=== PATIENT | female | born 1940 | race Caucasian/White ===

== ENCOUNTER 2022-04-28 19:03 | Inpatient (IN) | payer MEDICARE ==
[2022-04-28] VITALS (43 sets, daily range): BP systolic 139; BP diastolic 68; PULSE 74; TEMP 98.2; O2SAT 94–99
[~2022-04-28] VITALS: Ht 167.6 cm; Wt 55.1 kg
[2022-04-28 19:34] LABS: BASO # 0.1 K/mm3 (0.0-0.2); BASO % 0.6 % (0.0-2.0); EOS # 0.1 K/mm3 (0.0-0.7); EOS % 0.7 % (0.0-4.0); GRAN # 9.1 K/mm3 (1.4-6.5); HEMATOCRIT 32.3 % (37.0-47.0); HEMOGLOBIN 10.4 g/dl (12.5-16.0); LYMPH # 0.5 K/mm3 (1.2-3.4); LYMPH % 5.1 % (20.0-51.0); MEAN CELL VOLUME 95 fl (80.0-100.0); MEAN CORPUSCULAR HEMOGLOBIN 31 pg (27-31); MEAN CORPUSCULAR HGB CONC 32 g/dl (33.0-37.0); MONO # 0.8 K/mm3 (0.1-0.6); MONO % 7.4 % (1.7-9.3); PLATELET COUNT 412 K/mm3 (130-400); RED BLOOD COUNT 3.41 M/mm3 (4.10-5.30); REDCELL DISTRIBUTION WIDTH-CV 14.6 % (11.5-14.5)
[2022-04-28 19:55] LABS: ALBUMIN 3.6 gm/dL (3.4-4.8); BILIRUBIN,TOTAL 0.7 mg/dL (0.2-1.2); CALCIUM 9.3 mg/dL (8.4-10.2); CREATININE, serum 0.74 mg/dL (0.57-1.11); POTASSIUM 4.1 mmol/L (3.5-4.5); TOTAL PROTEIN 7.1 gm/dL (6.2-8.1)
[2022-04-28 19:58] LABS: INR 3.3 (0.8-3.0); PROTHROMBIN TIME 38.6 SECONDS (9.7-12.8)
[2022-04-28 20:06] LABS: TROPONIN-I 0.176 ng/mL (0.00-0.033)
[2022-04-28] MEDS ORDERED: COUMADIN 5MG5 MG/TAB PO (20:44)
[2022-04-28] MEDS ORDERED: TIKOSYN0.25 MG PO (20:45)
[2022-04-28] MEDS ORDERED: COZAAR 25MG25 MG/TAB (20:46)
[2022-04-28] MEDS ORDERED: GLUCOPHAGE XR500 M1 PO (20:56)
[2022-04-28] MEDS ORDERED: COZAAR100 MG PO (20:57)
[2022-04-28 22:32] LABS: MAGNESIUM 1.9 mg/dL (1.6-2.6); PHOSPHOROUS 2.7 mg/dL (2.3-4.7)
[2022-04-28 22:52] LABS: THYROID STIMULATING HORMONE 2.697 uIU/mL (0.350-4.940)
[2022-04-29] VITALS (1394 sets, daily range): BP systolic 106–144; BP diastolic 50–77; PULSE 72–87; TEMP 98–100.6; O2SAT 82–100
[2022-04-29] LABS: MUCOUS Present (NOT PRESENT); SQUAMOUS EPITHELIAL None Seen /hpf (0-10); URINE BACTERIA None Seen /hpf (NONE SEEN)
[2022-04-29 00:01] LABS: URINE APPEARANCE Clear (CLEAR/HAZY); URINE BLOOD TRACE-INTACT (NEGATIVE); URINE COLOR Yellow (YELLOW); URINE GLUCOSE Negative (NEGATIVE); URINE KETONE TRACE (NEGATIVE); URINE NITRATE Negative (NEGATIVE); URINE PROTEIN(semi-quant) Negative (NEGATIVE); URINE UROBILINOGEN 0.2 E.U/dL (0.2-1.0)
[2022-04-29 00:02] LABS: COLLECTION METHOD CLEAN CATCH
[2022-04-29 05:19] LABS: BASO % 0.5 % (0.0-2.0); GRAN # 7.1 K/mm3 (1.4-6.5); LYMPH # 0.5 K/mm3 (1.2-3.4); LYMPH % 6.4 % (20.0-51.0); MEAN CELL VOLUME 91 fl (80.0-100.0); MEAN CORPUSCULAR HGB CONC 34 g/dl (33.0-37.0); MONO # 0.7 K/mm3 (0.1-0.6); MONO % 8.7 % (1.7-9.3); PLATELET COUNT 345 K/mm3 (130-400); RED BLOOD COUNT 3.04 M/mm3 (4.10-5.30); REDCELL DISTRIBUTION WIDTH-CV 14.3 % (11.5-14.5)
[2022-04-29 05:22] LABS: HEMATOCRIT 27.7 % (37.0-47.0); HEMOGLOBIN 9.3 g/dl (12.5-16.0); MEAN CORPUSCULAR HEMOGLOBIN 31 pg (27-31)
[2022-04-29 05:42] LABS: CHOLESTEROL RISK RATIO 3.3
[2022-04-29 05:52] LABS: TROPONIN-I 1.92 ng/mL (0.00-0.033)
[2022-04-29 10:49] LABS: INR 2.6 (0.8-3.0); PROTHROMBIN TIME 30.4 SECONDS (9.7-12.8)
--- NOTE | 2022-04-29 11:14 | NUR ---
PRE PROCEDURE ASSESSMENT COMPLETED IN ROOM BY THIS RN. SEE MERGE FOR ALL BASELINE/INTRAPROCEDURAL VITAL, MEDICATION DOSAGES AND ADMINISTRATION TIMES AND INTRA/POST PROCEDURE SEDATION ASSESSMENTS.
[2022-04-29 11:21] LABS: ALBUMIN 3.1 gm/dL (3.4-4.8); BILIRUBIN,TOTAL 0.7 mg/dL (0.2-1.2); CALCIUM 8.6 mg/dL (8.4-10.2); CREATININE, serum 0.68 mg/dL (0.57-1.11); POTASSIUM 3.7 mmol/L (3.5-4.5)
--- NOTE | 2022-04-29 14:56 | NUR ---
PT REMAINS ON NITRO GTT, STATES SHE HAS SOME LEFT SIDED CHEST PAIN, IMPROVED FROM HER ARRIVAL TO THE ED. DENIES ANY FURTHER COMPLAINTS. HEART CATH PLANNED FOR 04/30/22. DR ERWIN ROUNDED TO DISCUSS PROCEDURE FOR TOMORROW. NO FURTHER NEEDS AT THIS TIME.
[2022-04-29 16:01] LABS: MEAN CELL VOLUME 93 fl (80.0-100.0); MEAN CORPUSCULAR HGB CONC 33 g/dl (33.0-37.0); MEAN PLATELET VOLUME 9.3 fl (7.4-10.4); PLATELET COUNT 347 K/mm3 (130-400); RED BLOOD COUNT 2.83 M/mm3 (4.10-5.30); REDCELL DISTRIBUTION WIDTH-CV 14.4 % (11.5-14.5)
[2022-04-29 16:04] LABS: HEMATOCRIT 26.4 % (37.0-47.0); HEMOGLOBIN 8.6 g/dl (12.5-16.0); MEAN CORPUSCULAR HEMOGLOBIN 30 pg (27-31)
[2022-04-29 16:12] LABS: CALCIUM 8.5 mg/dL (8.4-10.2); CREATININE, serum 0.77 mg/dL (0.57-1.11); POTASSIUM 3.6 mmol/L (3.5-4.5)
--- NOTE | 2022-04-29 20:00 | NUR ---
PT IS ALERT AND ORIENTED. PT STATES CHEST PAIN IS MUCH BETTER AND IS A 2/10. PT AMBULATED AROUND ROOM WITH A STAND BY ASSIST. PT INFORMED TO CALL RN IF ASSISTANCE IS NEEDED. CALL LIGHT WITHIN REACH. PT SITTING IN BED READING.
[2022-04-30] VITALS (730 sets, daily range): BP systolic 122–149; BP diastolic 11–104; PULSE 61–75; TEMP 98.6–100; O2SAT 87–100
[2022-04-30 06:36] LABS: BASO # 0.1 K/mm3 (0.0-0.2); BASO % 0.9 % (0.0-2.0); EOS % 0.2 % (0.0-4.0); LYMPH # 0.9 K/mm3 (1.2-3.4); LYMPH % 14.6 % (20.0-51.0); MEAN CELL VOLUME 91 fl (80.0-100.0); MEAN CORPUSCULAR HGB CONC 33 g/dl (33.0-37.0); MEAN PLATELET VOLUME 9.1 fl (7.4-10.4); MONO # 0.9 K/mm3 (0.1-0.6); MONO % 15.8 % (1.7-9.3); PLATELET COUNT 337 K/mm3 (130-400); RED BLOOD COUNT 2.99 M/mm3 (4.10-5.30); REDCELL DISTRIBUTION WIDTH-CV 14.5 % (11.5-14.5)
[2022-04-30 06:42] LABS: HEMATOCRIT 27.3 % (37.0-47.0); HEMOGLOBIN 9.1 g/dl (12.5-16.0); MEAN CORPUSCULAR HEMOGLOBIN 30 pg (27-31)
[2022-04-30 06:56] LABS: BILIRUBIN,TOTAL 0.6 mg/dL (0.2-1.2); CALCIUM 8.6 mg/dL (8.4-10.2); CREATININE, serum 0.68 mg/dL (0.57-1.11); POTASSIUM 3.6 mmol/L (3.5-4.5); TOTAL PROTEIN 5.9 gm/dL (6.2-8.1)
[2022-04-30 06:59] LABS: INR 1.8 (0.8-3.0); PROTHROMBIN TIME 20.2 SECONDS (9.7-12.8)
--- NOTE | 2022-04-30 11:07 | NUR ---
SW met with patient to complete intake. Patients daughter Isha ([phone]) present at bedside. Patient lives at home alone in [place] and is here visiting her daughter. Patient reports that she is normally indpendent with her ADL's and IADL's and utilizes walking sticks to assist with mobility. Patient has no home oxygen needs. PCP is Dr.Karen Washington out of [place] and she utilizes [facility] for short term medications and [facility] for marine oil terminal superintendent prescriptions. Patient reports that she does have a [employer] established listing her daughter as her agent but states that she has it at home. She is planning on staying with her daughter for a few days post discharge.
--- NOTE | 2022-04-30 11:17 | NUR ---
PRE PROCEDURE ASSESSMENT COMPLETED IN PATIENTS ROOM.SEE MERGE FOR BASELINE/INTRAPROCEDURALVITALS INCLUDING ETC02,MEDICATION ADMINISTRATION TIMES/AND DOSAGES AND INTRA/POST PROCEDURE SEDATION ASSESSMENTS.
--- NOTE | 2022-04-30 11:25 | NUR ---
PT DOING BETTER THIS MORNING, STATES CHEST PAIN FEELS MORE LIKE A "DULL ACHE" AND "COMES AND GOES". PT TO HAVE HEART CATH TODAY. FAMILY AT BEDSIDE. ALL QUESTIONS ANSWERED. NITRO GTT RUNNING. NO FURTHER NEEDS EXPRESSED AT THIS TIME. CALL LIGHT WITHIN REACH.
--- NOTE | 2022-04-30 11:43 | NUR ---
PT GOING DOWN FOR HEART CATH AT THIS TIME WITH BINGO ATTENDANT NURSE.
--- NOTE | 2022-04-30 12:58 | NUR ---
Mily: Mormon Situation: mill labor supervisor went by room on rounds Background: Pt was sitting up in bed and content with family by her side Assessment: mill labor supervisor prayed with pt and her family. No other needs right now. Recommendation: mill labor supervisor will follow up as needed
[2022-04-30] MEDS ORDERED: LIPITOR 40MG TA40 MG PO (13:20)
[2022-04-30] MEDS ORDERED: ASPIRIN E.C. 8181 MG PO (13:20)
--- NOTE | 2022-04-30 13:39 | NUR ---
1258: PT ARRIVED BACK TO ICU 1, FAMILY AT BEDSIDE. PT AWAKE, A&O. DENIES ANY CHEST PAIN OR PAIN AT THIS TIME. RT RADIAL SITE IN PLACE WITH 11MLS AIR. FINGERS WARM, GOOD PULSES, GOOD CAP REFILL. PT IS TO TRANSFER TO [facility] ARRANGING TRANSFER ORDERS.
--- NOTE | 2022-04-30 15:28 | NUR ---
1400: REPORT CALLED TO KEYSHAWN JOSE AT [facility]. ALL QUESTIONS ANSWERED. AWAITING EMS ARRANGEMENTS. 1515: RELEASED 3ML AIR. NO BLEEDING NOTED. 1520: PT CALLED TO USE BEDSIDE COMMODE. PT WAS ATEMPTING TO SIT UP AND WAS PLACING PRESSURE ON RT WRIST AND HAND, VERY MINIMAL BLEEDING NOTED. 3 ML AIR REPLACED IN TR BAND. ASSISTED PT TO BEDSIDE COMMODE AND BACK TO BED. EDUCATED PT ON LIMITING USE OF RT HAND. PT VERBALIZED UNDERSTANDING. WILL NEED REMINDERS.
--- NOTE | 2022-04-30 15:57 | NUR ---
1550: 3mls air released from tr band without issue. house sup notified this nurse that [facility] was on their way. Pt and family notified.
--- NOTE | 2022-04-30 16:25 | NUR ---
1620: EMS ARRIVED, PT ASSISTED TO CART AND ESCORTED OUT. FAMILY AT BEDSIDE. ALL BELONGINGS TAKEN WITH FAMILY. KEYSHAWN JOSE AT [facility] NOTIFIED OF PT DEPARTURE. TR BAND SYRINGE GIVEN TO EMS. 8ML AIR REMAINS. NO FURTHER BLEEDING NOTED AT THIS TIME.
== END 2022-04-30 16:20 | disposition short-term general hospital (02) | DRG 280 ==
LOC: COL.ER 19:03 → ICU 21:07
PROVIDERS: Emergency Medicine; Internal Medicine; Internal Medicine Cardiovascular Disease; Nurse Practitioner Family; Physician Assistant; ADMIT Internal Medicine
PROC: 4A023N7 Measurement of Cardiac Sampling and Pressure, Left Heart, Percutaneous Approach (ICD-10-PCS; principal; 2022-04-30)
PROC: B2111ZZ Fluoroscopy of Multiple Coronary Arteries using Low Osmolar Contrast (ICD-10-PCS; 2022-04-30)
DX: I21.4 Non-ST elevation (NSTEMI) myocardial infarction (principal); I50.23 Acute on chronic systolic (congestive) heart failure; E87.20 Acidosis, unspecified; I48.91 Unspecified atrial fibrillation; I11.0 Hypertensive heart disease with heart failure; D75.839 Thrombocytosis, unspecified; I49.3 Ventricular premature depolarization; I49.1 Atrial premature depolarization; I07.1 Rheumatic tricuspid insufficiency; E11.65 Type 2 diabetes mellitus with hyperglycemia; I25.10 Atherosclerotic heart disease of native coronary artery without angina pectoris; D50.9 Iron deficiency anemia, unspecified; Z79.01 Long term (current) use of anticoagulants; Z88.8 Allergy status to other drugs, medicaments and biological substances; Z85.3 Personal history of malignant neoplasm of breast
CPT/HCPCS: J1644; J1940; J2250; J2270; J3010; J7030; Q9967